=== PATIENT | female | born 2000 | race African-American/Black ===

== ENCOUNTER 2021-01-21 20:41 | Emergency (ER) | payer OTHER, MEDICAID ==
[~2021-01-21] VITALS: Ht 172.7 cm; Wt 132.9 kg
[2021-01-21] MEDS ORDERED: BENADRYL25 MG PO (21:20)
[2021-01-21] MEDS ORDERED: PREDNISONE 20 M20 MG PO (21:20)
[2021-01-21 22:09] VITALS: BP 155/79
== END 2021-01-21 22:09 | disposition home or self-care (01) ==
LOC: M.ERS 20:41
DX: R60.9 Edema, unspecified (principal); T78.49XA Other allergy, initial encounter; I10 Essential (primary) hypertension; X58.XXXA Exposure to other specified factors, initial encounter